=== PATIENT | female | born 1975 | race Two or more races ===

== ENCOUNTER 2018-05-15 13:44 | Emergency (ER) | payer OTHER ==
[~2018-05-15] VITALS: Ht 152.4 cm; Wt 97.5 kg
[2018-05-15 13:53] VITALS: BP 149/79
[2018-05-15] MEDS ORDERED: COLACE100 MG ORAL (14:15)
[2018-05-15] MEDS ORDERED: ANUSOL-HC30 GM RC (14:15)
[2018-05-15 14:20] VITALS: BP 147/70
--- NOTE | 2018-05-15 14:23 | Emergency Room Report ---
History of Present Illness General Chief Complaint: Pain Source: Patient Present Illness HPI Patient presents with complaints of pain and palpable lesion to the rectal area She reports that she had a similar episode previously which resolved by itself However now she has some increased discomfort Denies any chest pain or shortness of breath denies any abdominal pain Denies any fevers or chills Pain is 5 out of 10 worse with touch and sitting Allergies: Coded Allergies: No Known Allergies (Unverified , 05/15/18) Patient History Past Medical History: see triage record Pertinent Family History: none Last Menstrual Period: 06/12/18 Now: No Reviewed Nursing Documentation: PMH: Agreed; PSxH: Agreed Nursing Documentation-PMH Hx Hypertension: Yes Review of Systems All Other Systems: negative except mentioned in HPI Physical Exam Vital Signs Date Time Temp Pulse Resp B/P (MAP) Pulse Ox O2 Delivery O2 Flow Rate FiO2 05/15/18 13:53 98.4 86 20 149/79 98 Room Air 98.4 Sp02 EP Interpretation: reviewed, normal General Appearance: well appearing, no apparent distress Head: normocephalic, atraumatic Eyes: bilateral eye PERRL, bilateral eye EOMI ENT: hearing grossly normal, normal pharynx Neck: full range of motion, supple Respiratory: lungs clear Gastrointestinal: non tender, soft Rectal: other - Thrombosed hemorrhoid at approximately 6:00 region, otherwise rectal patency is noted no other masses Musculoskeletal: normal inspection Neurologic: alert, oriented x3 Skin: other - As above Lymphatic: no adenopathy Medical Decision Making Diagnostic Impression: Primary Impression: thrombosed hemorrhoid ER Course Given the clinical history and exam given the findings consistent with thrombosed hemorrhoid patient will require specialty referral Medications also provided Colace is also provided for improved stool formation Last Vital Signs Date Time Temp Pulse Resp B/P (MAP) Pulse Ox O2 Delivery O2 Flow Rate FiO2 05/15/18 13:53 98.4 86 20 149/79 98 Room Air 98.4 Status: improved Disposition: HOME, SELF-CARE Condition: Stable Scripts Docusate Sodium* (COLACE*) 100 Mg Capsule 100 MG ORAL TWICE A DAY, #20 CAP Prov: Tami David DO 05/15/18 Hydrocortisone Hc 2.5% Cream (ANUSOL-HC 2.5% CREAM) Y Cr 30 GM RC BID for 7 Days, GM Prov: Tami David DO 05/15/18 Referrals: Eliseo Webber Patient Instructions: Hemorrhoids, [id number] Additional Instructions: Patient is provided with the discharge instructions notified to follow up with primary doctor in the next 2-3 days otherwise return to the er with any worsening symptoms. Please note that this report is being documented using DRAGON technology. This can lead to erroneous entry secondary to incorrect interpretation by the dictating instrument. Tami David DO May 15, 2018 14:23
== END 2018-05-15 14:25 | disposition home or self-care (01) ==
LOC: EMR 14:24
DX: K64.5 Perianal venous thrombosis (principal); I10 Essential (primary) hypertension
CPT/HCPCS: 99283